=== PATIENT | male | born 1990 | race Caucasian/White ===

== ENCOUNTER 2020-12-21 11:35 | Emergency (ER) | payer OTHER ==
[~2020-12-21] VITALS: Ht 175.3 cm; Wt 79.5 kg
[2020-12-21 11:35] VITALS: BP 146/86
[2020-12-21] MEDS ORDERED: metroNIDAZOLE (FLAGYL) 500MG TABLET PO ONE (12:00)
[2020-12-21] MEDS ORDERED: BACTRIM 160MG/800MG DS TAB PO ONE (12:00)
[2020-12-21] MEDS ORDERED: FLAG500T PO (12:18)
[2020-12-21] MEDS ORDERED: BACT800T5 PO (12:18)
== END 2020-12-21 12:33 | disposition home or self-care (01) ==
LOC: M ED 11:35
DX: S60.371A Other superficial bite of right thumb, initial encounter (principal); S60.111A Contusion of right thumb with damage to nail, initial encounter; S61.011A Laceration without foreign body of right thumb without damage to nail, initial encounter; W54.0XXA Bitten by dog, initial encounter; Y92.009 Unspecified place in unspecified non-institutional (private) residence as the place of occurrence of the external cause; Y93.89 Activity, other specified; Y99.9 Unspecified external cause status; F17.200 Nicotine dependence, unspecified, uncomplicated; Z88.0 Allergy status to penicillin

== ENCOUNTER 2022-11-13 01:02 | Emergency (ER) | payer OTHER ==
[~2022-11-13] VITALS: Ht 175.3 cm; Wt 80.9 kg
[~2022-11-13 01:02] MED LIST: BACT800T5 PO; FLAG500T PO
[2022-11-13 02:02] LABS: HEMATOCRIT 40.8 % (42.0-52.0); MEAN CORPUSCULAR HEMOGLOBIN 28.8 pg (27.0-33.0); MEAN CORPUSCULAR HGB CONC 34.3 g/dl (32.0-36.5); PLATELET COUNT, AUTOMATED 253 10^3/uL (150-450); RED BLOOD COUNT 4.86 10^6/uL (4.30-6.10); WHITE BLOOD COUNT 7.2 10^3/uL (4.0-10.0)
[2022-11-13] MEDS ORDERED: IBUPROFEN 800 MG TAB PO ONE (02:15)
[2022-11-13 02:26] LABS: ETHYL ALCOHOL (ETHANOL) 0.284 % (0.000-0.010)
[2022-11-13 02:27] LABS: ACETAMINOPHEN LEVEL < 2.0 UG/ML (10.0-20.0)
[2022-11-13 02:28] LABS: ALBUMIN 4.3 G/DL (3.2-5.2); ALKALINE PHOSPHATASE 77 U/L (46-116); ALT/SGPT 18 U/L (7.0-40); AST/SGOT 22 U/L (<34); BILIRUBIN,DIRECT < 0.1 MG/DL (<0.4); BILIRUBIN,TOTAL 0.3 MG/DL (0.3-1.2); BLOOD UREA NITROGEN 16 MG/DL (9-23); CALCIUM LEVEL 8.5 MG/DL (8.5-10.1); CARBON DIOXIDE LEVEL 21 MMOL/L (20-31); CHLORIDE LEVEL 106 MMOL/L (98-107); CREATININE FOR GFR 0.85 MG/DL (0.70-1.30); GLOMERULAR FILTRATION RATE > 60.0 (>60); GLUCOSE, FASTING 97 MG/DL (60-100); POTASSIUM SERUM 3.8 MMOL/L (3.5-5.1); SALICYLATE LEVEL < 3.0 MG/DL (<30); SODIUM LEVEL 138 MMOL/L (136-145); TOTAL PROTEIN 7.5 G/DL (5.7-8.2)
[2022-11-13] MEDS ORDERED: IBUPROFEN 100MG 5ML ORAL SUSP UDC PO ONE (02:30)
[2022-11-13 02:31] LABS: THYROID STIMULATING HORMONE 1.318 uIU/ML (0.55-4.78)
[2022-11-13] MEDS ORDERED: NICOTINE POLACRILEX 2 MG GUM PO ONE (04:00)
[2022-11-13 04:37] LABS: AMPHETAMINES LEVEL URINE NEGATIVE (NEGATIVE); BARBITURATES URINE NEGATIVE (NEGATIVE); BENZODIAZEPINES URINE NEGATIVE (NEGATIVE); CANNABINOIDS URINE NEGATIVE (NEGATIVE); COCAINE METABOLITE URINE NEGATIVE (NEGATIVE); METHADONE URINE NEGATIVE (NEGATIVE); OPIATES URINE NEGATIVE (NEGATIVE); PHENCYCLIDINE URINE NEGATIVE (NEGATIVE)
[2022-11-13] MEDS ORDERED: PERCOCET 5MG/325MG TAB PO ONE (08:15)
[2022-11-13] MEDS ORDERED: PERC5TAB12 PO (08:31)
[2022-11-13 09:13] VITALS: BP 132/72
== END 2022-11-13 09:20 | disposition home or self-care (01) ==
LOC: M ED 01:02
DX: F10.129 Alcohol abuse with intoxication, unspecified (principal); F43.0 Acute stress reaction; S82.51XA Displaced fracture of medial malleolus of right tibia, initial encounter for closed fracture; S82.831A Other fracture of upper and lower end of right fibula, initial encounter for closed fracture; Y04.0XXA Assault by unarmed brawl or fight, initial encounter; Y92.89 Other specified places as the place of occurrence of the external cause; Z88.0 Allergy status to penicillin

== ENCOUNTER → 2022-11-16 | Outpatient (CLI) | payer OTHER ==
[~2022-11-16] MED LIST changes: +PERC5TAB12 PO; +TRAM50TA2 PO
== END ==
LOC: M SOG 08:28
PROVIDERS: ATTEND Orthopaedic Surgery
DX: M25.571 Pain in right ankle and joints of right foot (principal)

== ENCOUNTER 2022-11-22 12:42 | Day surgery (SDC) | payer OTHER ==
[~2022-11-22] VITALS: Ht 175.3 cm; Wt 79.4 kg
[~2022-11-22 12:42] MED LIST changes: +VANCOMYCIN HCL 1,000 MG, VIAL MATE ADAPTER 1 EACH in D5W 250 ML IV ONE
[2022-11-22] MEDS ORDERED: LR 1,000 ML IV SCH ×2 (13:10→17:25)
[2022-11-22] MEDS ORDERED: LIDOCAINE 1% SDV 5ML VIAL SC PRN (13:10)
[2022-11-22] MEDS ORDERED: fentaNYL 100 MCG/2 ML INJECTION IV PRN ×2 (15:10→17:25)
[2022-11-22] MEDS ORDERED: LIDOCAINE 1% SDV 5ML VIAL PN ONE (15:10)
[2022-11-22] MEDS ORDERED: ROPIvacaine 0.5% 30ML VIAL PN ONE (15:10)
[2022-11-22] MEDS ORDERED: MIDAZOLAM INJ 2MG/2ML VIAL IV PRN (15:10)
[2022-11-22] MEDS ORDERED: LIDOCAINE 2% 100MG/5ML SDV (FOR ANES.) As Ordered ONE (16:35)
[2022-11-22] MEDS ORDERED: METOCLOPRAMIDE INJ 10MG/2ML VIAL As Ordered ONE (16:35)
[2022-11-22] MEDS ORDERED: propofoL 200 MG/20 ML VIAL As Ordered ONE (16:35)
[2022-11-22] MEDS ORDERED: MIDAZOLAM INJ 2MG/2ML VIAL As Ordered ONE (16:35)
[2022-11-22] MEDS ORDERED: fentaNYL 100 MCG/2 ML INJECTION As Ordered ONE (16:35)
[2022-11-22] MEDS ORDERED: ACETAMINOPHEN 1000MG 100ML IV BAG As Ordered ONE (16:35)
[2022-11-22] MEDS ORDERED: ONDANSETRON 4MG 2ML VIAL As Ordered ONE (16:35)
[2022-11-22] MEDS ORDERED: DESFLURANE 240 ML INHALANT As Ordered ONE (16:47)
[2022-11-22] MEDS ORDERED: oxyCODONE 5MG TAB PO PRN (17:25)
[2022-11-22] MEDS ORDERED: ONDANSETRON 4MG 2ML VIAL IV PRN (17:25)
[2022-11-22] MEDS ORDERED: PERC5TAB12 PO (17:35)
[2022-11-22 17:55] VITALS: BP 142/83
== END 2022-11-22 18:14 | disposition home or self-care (01) ==
LOC: M SDC 12:42
PROVIDERS: ATTEND Orthopaedic Surgery
DX: S82.891A Other fracture of right lower leg, initial encounter for closed fracture (principal); S82.861A Displaced Maisonneuve's fracture of right leg, initial encounter for closed fracture; M25.571 Pain in right ankle and joints of right foot; W19.XXXA Unspecified fall, initial encounter; Y92.480 Sidewalk as the place of occurrence of the external cause; Z88.0 Allergy status to penicillin
CPT/HCPCS: 27828; 27829; 64445; 64447; 76000; C1713; J0131; J1100; J2250; J2405; J2765; J2795; J3010

== ENCOUNTER → 2022-11-28 | Outpatient (CLI) | payer OTHER ==
[~2022-11-28] MED LIST changes: -VANCOMYCIN HCL 1,000 MG, VIAL MATE ADAPTER 1 EACH in D5W 250 ML IV ONE
== END ==
LOC: M SOG 13:09
PROVIDERS: ATTEND Orthopaedic Surgery
DX: S82.861A Displaced Maisonneuve's fracture of right leg, initial encounter for closed fracture (principal); M79.89 Other specified soft tissue disorders; X58.XXXA Exposure to other specified factors, initial encounter; Y92.9 Unspecified place or not applicable; Y93.9 Activity, unspecified; Y99.9 Unspecified external cause status

== ENCOUNTER → 2022-12-08 | Outpatient (CLI) | payer OTHER | LOC: M SOG 09:07 | PROVIDERS: ATTEND Orthopaedic Surgery | DX: S82.861D Displaced Maisonneuve's fracture of right leg, subsequent encounter for closed fracture with routine healing (principal); S82.51XK Displaced fracture of medial malleolus of right tibia, subsequent encounter for closed fracture with nonunion ==

== ENCOUNTER → 2023-01-09 | Outpatient (CLI) | payer OTHER | LOC: M SOG 08:43 | PROVIDERS: ATTEND Orthopaedic Surgery | DX: S82.861D Displaced Maisonneuve's fracture of right leg, subsequent encounter for closed fracture with routine healing (principal) ==

== ENCOUNTER → 2023-02-20 | Outpatient (CLI) | payer OTHER | LOC: M SOG 02-17 10:52 | PROVIDERS: ATTEND Orthopaedic Surgery | DX: S82.861D Displaced Maisonneuve's fracture of right leg, subsequent encounter for closed fracture with routine healing (principal); S82.51XP Displaced fracture of medial malleolus of right tibia, subsequent encounter for closed fracture with malunion ==